=== PATIENT | male | born 1990 | race Caucasian/White ===

== ENCOUNTER 2018-07-08 07:22 | Emergency (ER) | payer SELFPAY ==
[~2018-07-08] VITALS: Ht 188 cm; Wt 86.0 kg
--- NOTE | 2018-07-08 07:40 | NUR ---
PT AMBULATORY TO TOOM T1 W/ C/O DIFFUSE ABD PAIN THROUGHOUT AND BILAT FLANK PAIN STARTED AT 0700 TODAY AFTER PT DRANK RED BULL. PT STATES HE WAS IN EXCRUTIATING PAIN WHILE IN TRIAGE AND LOBBY BUT STATES THE PAIN HAS SINCE SUBSIDED AND CURRENTLY HAS NO PAIN 0/10. PT RESTING ON GURNEY. NADN. MONITORS APPLIED. WARM BLANKET PROVIDED.
[2018-07-08 07:55] LABS: BASOPHILS # (AUTO) 0.06 x10^3/uL (0-0.1); BASOPHILS % (AUTO) 1 % (0-1); EOSINOPHILS # (AUTO) 0.16 x10^3/uL (0-0.4); EOSINOPHILS % (AUTO) 2 % (1-7); LYMPHOCYTES # (AUTO) 1.42 x10^3/uL (1-3.4); LYMPHOCYTES % (AUTO) 17 % (22-44); MD NO; MEAN CORPUSCULAR HEMOGLOBIN 31.7 pg (27.5-34.5); MEAN CORPUSCULAR HGB CONC 34.1 g/dL (33.2-36.2); MEAN CORPUSCULAR VOLUME 92.8 fL (81-97); MEAN PLATELET VOLUME 9.2 fL (7.4-10.4); MONOCYTES # (AUTO) 0.52 x10^3/uL (0.2-0.8); MONOCYTES % (AUTO) 6 % (2-9); NEUTROPHILS # (AUTO) 6.37 x10^3/uL (1.8-6.8); NEUTROPHILS % (AUTO) 75 % (42-75); PLATELET COUNT 202 x10^3/uL (130-400); RED BLOOD COUNT 5.09 x10^6/uL (4.38-5.82); RED CELL DISTRIBUTION WIDTH 12.7 % (9.4-14.8)
[2018-07-08 08:01] LABS: MICROSCOPIC NOT IND
--- NOTE | 2018-07-08 08:03 | NUR ---
PT REFUSING XR AT THIS TIME STATING "I FEEL FINE NOW AND I REALLY DON'T WANT THE BILL FOR IT". ANNA, ED RISK ASSESSMENT ANALYST NOTIFIED.
[2018-07-08 08:08] LABS: ALANINE AMINOTRANSFERASE 34 U/L (12-78); ALBUMIN 4.4 g/dL (3.4-5.0); ANION GAP 8 mmol/L (5-15); CALCIUM 8.9 mg/dL (8.5-10.1); CHLORIDE 112 mmol/L (98-107); CREATININE 1.04 mg/dL (0.7-1.3)
[2018-07-08 08:09] LABS: CULTURE INDICATED? NO
[2018-07-08 08:11] LABS: ALKALINE PHOSPHATASE 94 U/L (45-117); BILIRUBIN,TOTAL 0.8 mg/dL (0.2-1.0); TOTAL PROTEIN 7.1 g/dL (6.4-8.2)
[2018-07-08 08:20] VITALS: BP 114/62
--- NOTE | 2018-07-08 08:20 | NUR ---
PT CHART REVIEWED AND PLACED FOR RECHECK.
--- NOTE | 2018-07-08 08:33 | NUR ---
ERP DR. SHAH AT BEDSIDE.
== END 2018-07-08 09:02 | disposition home or self-care (01) ==
LOC: ED 08:08
DX: R10.84 Generalized abdominal pain (principal)
CPT/HCPCS: 36415; 80053; 81003; 83690; 85025; 99283